=== PATIENT | female | born 1940 | race Caucasian/White ===

== ENCOUNTER 2017-07-08 09:14 | Outpatient (CLI) | payer MEDICARE, OTHER ==
[2017-07-08 10:00] LABS: BASOPHILS % 0.8 (0.0-1.5); EOSINOPHILS % 4.1 % (0.0-6.8); MEAN CORPUSCULAR VOLUME 95.2 fl (80.0-100.0); MONOCYTES % 4.4 % (0.0-11.0); NEUTROPHILS # 6.3 # k/uL (1.4-7.7)
[2017-07-08 10:46] LABS: eGFR (African) > 60; eGFR (Non-African) > 60
== END 2017-07-08 09:15 ==
LOC: LAB 09:14
PROVIDERS: ATTEND Family Medicine
DX: R53.1 Weakness (principal); R07.9 Chest pain, unspecified
CPT/HCPCS: 36415; 80053; 83036; 84443; 85025

== ENCOUNTER 2017-07-09 11:32 | Outpatient (CLI) | payer MEDICARE, OTHER | END 2017-07-09 11:33 | LOC: LAB 11:32 | PROVIDERS: ATTEND Family Medicine | DX: R73.9 Hyperglycemia, unspecified (principal) | CPT/HCPCS: 36415; 83036 ==

== ENCOUNTER 2017-07-12 15:33 | Inpatient (IN) | payer MEDICARE, OTHER ==
--- NOTE | 2017-07-12 15:43 | ED Physician Documentation ---
General Adult - HISTORIAN Historian: patient - HPI Stated Complaint: hyperglycemia, chest pain Chief Complaint: General Adult Onset: hours Timing: still present Severity: moderate Further Comments: yes (Pt is a 77 yo female dx'd with DMII recently and started on Metformin 1000 mg po bid at the beginning of this week. Pt found an elevated blood sugar of 400 at home today and called her doctor who told her to come to ER. Pt has also had chest pain at home together with increased dyspnea on exertion in the past few days. Pt has also had nausea. Nausea preceded her starting Metformin. Pt was supposed to have started Metformin 500 bid for a week and then increase to 1000 mg bid, but pt started in at 1000 mg po bid. Pt states that pain has been 6/10 in severity and is in her central and lower chest and radiated to her back. Pt's daughter also notes that pt has been having occasional difficulties remembering words, and inverting numbers on the telephone in the past few days.) - ROS CONST: weakness EYES/ENT: none CVS/RESP: chest pain, shortness of breath GI/: nausea MS/SKIN/LYMPH: none - PAST HX Past History: AMI, other (DMII (recent dx), CAD, HLD, depression.) Allergies/Adverse Reactions: Allergies Allergy/AdvReac Type Severity Reaction Status Date / Time No Known Drug Allergies Allergy Verified 07/12/17 16:49 Home Medications: Ambulatory Orders Medication Instructions Recorded Aspirin 81 mg PO DAILY u2 03/02/14 Centrum Silver Ultra Women Tab 1 each PO DAILY u2 03/02/14 Simvastatin 10 mg PO DAILY u2 03/02/14 - SOCIAL HX Smoking History: cigarettes (4 cigarettes/day) - FAMILY HX Family History: No - REVIEWED ASSESSMENTS Nursing Assessment Reviewed: Yes Vitals Reviewed: Yes Progress - Progress Progress: glucose = 405 Insulin R 8 units SC glucose = 365 after [address] Morgan for hyperglycemia, chest pain, elevated lipase. (Dr. Morgan to write insulin orders.) - EKG/XRAY/CT EKG: NSR (HR=85; normal axis; normal AK interval; normal EKG.) XRAY: chest (neg) General Adult Physical Exam - PHYSICAL EXAM GENERAL APPEARANCE: mild distress EENT: pharynx normal NECK: normal inspection, supple RESPIRATORY: no resp distress, chest non-tender, breath sounds normal CVS: reg rate & rhythm, heart sounds normal ABDOMEN: soft, no organomegaly, normal bowel sounds BACK: normal inspection, no CVA tenderness SKIN: warm/dry, normal color EXTREMITIES: non-tender, normal range of motion, no evidence of injury NEURO: oriented X3, motor nml, sensation nml Discharge Clincal Impression: chest pain, Hyperglycemia, elevated Lipase, Dyspnea on exertion Referrals: Johana Ratliff MD [Primary Care Provider] - Condition: Stable Disposition: 09 ADMITTED INPATIENT Decision to Admit: [id number] Decision Time: 17:07
[2017-07-12] MEDS ORDERED: ASPIRIN 81 MG CHEW TAB PO ONE (16:00)
[2017-07-12] MEDS ORDERED: INSULIN REGULAR, HUMAN 100 UNIT/ML 3ML VIAL SQ STA (16:04)
[2017-07-12] MEDS ORDERED: INSULIN REGULAR, HUMAN 100 UNIT/ML 3ML VIAL ONE (16:06)
[2017-07-12 16:10] LABS: BASOPHILS % 0.5 (0.0-1.5); EOSINOPHILS % 4.1 % (0.0-6.8); MEAN CORPUSCULAR HEMOGLOBIN 31.2 pg (28.0-34.0); MEAN CORPUSCULAR VOLUME 91.5 fl (80.0-100.0); NEUTROPHILS # 5.4 # k/uL (1.4-7.7)
[2017-07-12 16:19] LABS: eGFR (African) > 60; eGFR (Non-African) > 60
[2017-07-12] MEDS ORDERED: 0.9 % SODIUM CHLORIDE 1,000 ML IV SCH (17:30)
--- NOTE | 2017-07-12 18:52 | Diagnostic Imaging Report ---
PEDRO LUIS BLISS [facility] [id number] Pending Sale To [facility] [address] [place] [address]. [id number] Report Submission Date: Jul 12, 2017 4:39:55 PM CDT Patient Study Name: JACKIE BILLY Date: Jul 12, 2017 4:03:55 PM CDT Modality Type: DX Gender: F Description: CHEST : 42 Institution: [facility] Physician: PEDRO LUIS BLISS Examination: Portable chest History: Evaluate lungs. PCXR, DYSPNEA ON EXERTION, SOA FOR A WEEKS, WORSENING (Hx) Comparison exam: None provided. Findings: Single view of the chest demonstrates a normal cardiac and mediastinal silhouette. Lung mccollum without focal infiltrate. No blunting of the costophrenic margins. Left lower lung granuloma/calcification. Articular degenerative changes. Impression: No acute pulmonary process. Electronically signed on Jul 12, 2017 4:39:55 PM CDT by: Shane SAAVEDRA
[2017-07-12 19:31] VITALS: BMI 22.8
[2017-07-12] MEDS: DEXTROSE 5 %-0.45 % NACL 1,000 ML IV SCH (22:19)
--- NOTE | 2017-07-12 22:25 | History and Physical Report ---
History of Present Illnes - History of Present Illness Reason for Visit: Chest pain, elevated lipase, hyperglycemia History of Present Illness: This is a 77 year old female who presented to the ER with some chest pain/upper abdominal pain and an elevated blood sugar at just over 400. She has been recently diagnosed with diabetes by Dr. Ratliff, and started on Metformin. She was to start on 500 po BID x 1 week and then advance to 1000 BID, but she started at 1000 BID. She is now having very little chest or abdominal pain. She is admitted for serial troponins. - Past Medical History Cardiac: CAD, HTN Pulmonary: COPD Heme/Onc: Cancer (of breast) Musculoskeletal: Osteoarthritis Endocrine: Diabetes, Hypothyroidism - Past Surgical History Past Surgical History: (x2), Hysterectomy, Other (Breast Lumpectomy, Lumbar fusion) - Past Social History Smoke: <1 pack per day Alcohol: Rare Drugs: None Lives: Alone Domestic Violence: Negative - Health Maintenance Health Maintenance: Cholesterol Influenza Vaccine: Current for this Influenza Season Pneumonia Vaccine: Yes Resuscitation Status: Resusciation Status Resuscitation Status Full Code - Unable to Obtain History Unable to Obtain: No Review of Systems - Review of Systems Constitutional: negative: Fever, Chills Eyes: negative: pain, vision change ENT: negative: Ear Pain, Ear Discharge Respiratory: Shortness of Breath, SOB with Excertion. negative: Cough, Dry Cardiovascular: negative: Chest Pain Gastrointestinal: Abdominal Pain (mild epigastric). negative: Nausea Genitourinary: negative: Dysuria Musculoskeletal: negative: Neck Pain, Shoulder Pain Skin: negative: Rash, Lesions Neurological: Weakness, Change in Speech (some word finding difficulty, family has noted that she sometimes inverts numbers in phone numbers) - Medications/Allergies Allergies/Adverse Reactions: Allergies Allergy/AdvReac Type Severity Reaction Status Date / Time No Known Drug Allergies Allergy Verified 07/12/17 16:49 Current Inpatient Medications: Current Inpatient Medications Aspirin (Aspirin) 81 mg PO DAILY [facility] Escitalopram Oxalate (Lexapro) 20 mg PO DAILY [facility] Dextrose/Sodium Chloride (D51/2ns) 1,000 mls @ 100 mls/hr IV Q10H [facility] Last Admin: 07/12/17 22:19 Dose: 100 mls/hr Metformin HCl (Glucophage) 1,[address] [place] [id number] [facility] Miscellaneous (Chem Sticks) 1 each CHEMQID [facility] Last Admin: 07/12/17 22:19 Dose: 1 each Nystatin (Nystop) 1 appl TP BID [facility] Stop: 07/22/17 22:59 Simvastatin (Zocor) 10 mg PO DAILY [facility] Exam - Exam Vital Signs: Vital Signs (72 hours) 07/12/17 07/12/17 07/12/17 18:00 18:30 19:00 Temperature 97.8 F Pulse Rate 88 90 Pulse Rate [ 81 Pulse ox] Pulse Rate [ 81 Right] Respiratory 16 Rate Blood Pressure 123/75 [Right Arm] O2 Sat by Pulse 95 Oximetry 07/12/17 07/12/17 19:31 21:07 Temperature Pulse Rate 84 74 Pulse Rate [ Pulse ox] Pulse Rate [ Right] Respiratory Rate Blood Pressure [Right Arm] O2 Sat by Pulse Oximetry General: Alert, Oriented to Person, Oriented to Place, Oriented to Time, Cooperative HEENT: Atraumatic, PERRLA, EOMI Neck: No: Stridor, Rigidity Lungs: Wheezes, Prolonged Expiration, Decreased Air Movement Cardiovascular: Regular rate Murmur: No: Systolic Murmur Abdomen: Normal bowel sounds, Soft, Other (mild tenderness in epigastrium). No : Distended Genitourinary: No: Other Male Genitourinary: No: Other Female Genitourinary: No: Other Integumentary: Normal, [place], Warm Extremities: No clubbing, No cyanosis, No edema Neurological: Normal speech Psych/Mental Status: Mental status NL Assessment/Plan - Assessment/Plan (1) Elevated lipase Status: Acute Current Visit: Yes Assessment: NPO Recheck lipase in am (2) Dyspnea on exertion Status: Acute Current Visit: Yes Assessment: Serial troponins and EKGs. (3) Hyperglycemia Status: Acute Current Visit: Yes Assessment: Now euglycemic Plan: Started D5 1/2NS due to NPO status Continue metformin VTE Assessment - RISK FACTOR SCORE VTE RISK FACTOR SCORES: AGE OVER 60 YEARS, ACUTE RESPIRATORY FAILURE/SEVERE COPD - RISK VTE MODERATE RISK: SCORE OF 2 (RISK PROXIMAL DVT 2-4%) PROPHYAXIS NEEDED
[2017-07-12] MEDS ORDERED: NYSTATIN POWDER BOTTLE TP SCH (23:00)
[2017-07-13] MEDS ORDERED: SIMVASTATIN 20 MG TABLET ONE (02:56)
[2017-07-13] MEDS ORDERED: ASPIRIN EC 81 MG TABLET.DR ONE (02:56)
[2017-07-13 04:20] LABS: BASOPHILS % 0.6 (0.0-1.5); EOSINOPHILS % 5.4 % (0.0-6.8); MEAN CORPUSCULAR VOLUME 90.7 fl (80.0-100.0); MONOCYTES % 7.3 % (0.0-11.0); NEUTROPHILS # 4.8 # k/uL (1.4-7.7)
[2017-07-13 04:32] LABS: eGFR (African) > 60; eGFR (Non-African) > 60
[2017-07-13] MEDS ORDERED: ACETAMINOPHEN 325 MG TABLET PO PRN (04:46)
[2017-07-13] MEDS ORDERED: ONDANSETRON HCL/PF 4 MG/ 2ML VIAL IVP PRN (04:47)
[2017-07-13] MEDS: ACETAMINOPHEN 325 MG TABLET PO PRN ×2 (04:59→20:40)
[2017-07-13] MEDS: DEXTROSE 5 %-0.45 % NACL 1,000 ML IV SCH ×3 (09:12→19:42)
[2017-07-13] MEDS: ASPIRIN 81 MG CHEW TAB PO SCH (09:13)
[2017-07-13] MEDS: ESCITALOPRAM OXALATE 10 MG TABLET PO SCH (09:13)
[2017-07-13] MEDS: SIMVASTATIN 40 MG TABLET PO SCH (09:15)
--- NOTE | 2017-07-13 11:01 | Inpatient Progress Note ---
Subjective - Required Recertification Statement I anticipate X number of days because-include discharge plan: 1 - Review of Systems Events since last encounter: Janeth is still having epigastric pain. She remains NPO. Her EKG shows no evidence of ischemia, and her troponins are all negative x 3, however her lipase increased from 406 to 460 today. I have ordered a CT scan of her abdomen to evaluate her pancreas, and she remains NPO. She says that she is intermittently hungry, however she says "I think I'm more hungry in theory than in reality, and I doubt I could eat anything if I had the opportunity". General: Denies: Chills HEENT: Denies: Head Aches Pulmonary: Denies: Dyspnea, Cough Cardiovascular: Denies: Chest Pain Gastrointestinal: Other (continued epigastric pain) Genitourinary: Denies: Dysuria, Frequency Musculoskeletal: Denies: Neck Pain Neurological: Denies: Weakness, Incoordination, Change in Speech, Confusion Objective - Exam Vitals and I&O: Vital Signs Temp 97.4 F L 07/13/17 08:23 Pulse 83 07/13/17 08:23 Resp 16 07/13/17 08:23 BP 144/81 07/13/17 08:23 Pulse Ox 97 07/13/17 08:23 Intake & Output 07/12/17 07/12/17 07/13/17 11:59 23:59 11:59 Intake Total 350 800 Output Total 200 800 Balance 150 0 Weight 62.142 kg Intake: IV 350 800 Left Antecubital 350 800 Oral 0 Output: Urine 200 800 Other: Voiding Method Toilet Toilet General: Alert, Oriented to Person, Oriented to Place, Mild distress HEENT: Atraumatic, PERRLA, EOMI Neck: Supple, No JVD Lungs: Clear to auscultation, Normal air movement, Speaks full Sentences Cardiovascular: Regular rate Abdomen: Normal bowel sounds, Soft, No tenderness Extremities: No clubbing, No cyanosis, No edema Skin: Normal Neurological: Normal speech Psych/Mental Status: Mental status NL - Results Results: Laboratory Results WBC 8.50 K/ul (4.00-12.00) 07/13/17 04:10 RBC 4.41 M/ul (3.90-5.20) 07/13/17 04:10 Hgb 13.7 g/dL (12.0-16.0) 07/13/17 04:10 Hct 40.0 % (34.5-46.5) 07/13/17 04:10 MCV 90.7 fl (80.0-100.0) 07/13/17 04:10 MCH 31.0 pg (28.0-34.0) 07/13/17 04:10 MCHC 34.2 g/dL (30.0-36.0) 07/13/17 04:10 RDW 12.7 % (11.3-14.3) 07/13/17 04:10 Plt Count 196 K/mm3 (130-400) 07/13/17 04:10 Neut % (Auto) 56.4 % (39.0-79.0) 07/13/17 04:10 Lymph % (Auto) 28.2 % (16.0-50.0) 07/13/17 04:10 [place] % (Auto) 7.3 % (0.0-11.0) 07/13/17 04:10 Eos % (Auto) 5.4 % (0.0-6.8) 07/13/17 04:10 Baso % (Auto) 0.6 (0.0-1.5) 07/13/17 04:10 Neut # (Auto) 4.8 # k/uL (1.4-7.7) 07/13/17 04:10 Lymph # (Auto) 2.4 # k/uL (0.6-4.0) 07/13/17 04:10 [place] # (Auto) 0.6 # k/uL (0.0-0.9) 07/13/17 04:10 Eos # (Auto) 0.5 # k/uL (0.0-0.6) 07/13/17 04:10 Baso # (Auto) 0.0 # k/uL (0.0-0.5) 07/13/17 04:10 Reactive Lymphs % 2.1 % (0.0-5.0) 07/13/17 04:10 Reactive Lymphs # 0.2 # k/uL (0.0-0.8) 07/13/17 04:10 Sodium 138 mmol/L (136-145) 07/13/17 04:10 Potassium 4.0 mmol/L (3.5-5.1) 07/13/17 04:10 Chloride 104 mmol/L (98-107) 07/13/17 04:10 Carbon Dioxide 22 mmol/L (22-30) 07/13/17 04:10 BUN 11 mg/dL (7-17) 07/13/17 04:10 Creatinine 0.50 mg/dL (0.52-1.04) L 07/13/17 04:10 Estimated Creat Clear 110 07/13/17 04:10 Est GFR ( Amer) > 60 (60-) 07/13/17 04:10 Est GFR (Non-Af Amer) > 60 (60-) 07/13/17 04:10 Glucose 247 mg/dL (74-106) H 07/13/17 04:10 Calcium 8.8 mg/dL (8.4-10.2) 07/13/17 04:10 Total Bilirubin 1.2 mg/dL (0.2-1.3) 07/13/17 04:10 AST 16 U/L (15-46) 07/13/17 04:10 ALT 30 U/L (13-69) 07/13/17 04:10 Alkaline Phosphatase 105 U/L (38-126) 07/13/17 04:10 Creatine Kinase 58 U/L (30-135) 07/12/17 16:05 Troponin I < 0.03 ng/mL (0.03-0.06) L 07/13/17 04:10 NT-Pro-B Natriuret Pep 39.2 pg/mL (15.0-450.0) 07/12/17 16:05 Total Protein 6.6 g/dL (6.3-8.2) 07/13/17 04:10 Albumin 3.8 g/dL (3.5-5.0) 07/13/17 04:10 Lipase 460 U/L (23-300) H 07/13/17 04:10 Assessment/Plan - Assessment/Plan (1) Elevated lipase Status: Acute Current Visit: Yes Assessment: Increased today Plan: Will check a CT of the abdomen and pelvis Continue NPO (2) Dyspnea on exertion Status: Acute Current Visit: Yes Assessment: Chronic (3) Hyperglycemia Status: Acute Current Visit: Yes Assessment: Will start SSI as blood sugars are still running in the 300s.
--- NOTE | 2017-07-13 12:43 | Diagnostic Imaging Report ---
[facility] [address] [address] [employer] [address] [place] [address]. [id number] Report Submission Date: Jul 13, 2017 12:38:09 PM CDT Patient Study Name: JACKIE BILLY Date: Jul 13, 2017 11:35:52 AM CDT Modality Type: CT\SR Gender: F Description: CT ABD PELVIS W/ CON : 42 Institution: [facility] Physician: REAL SAWYER/MED SURG Examination: CT Abdomen/pelvis History: PANCREATITIS, PT STATES ABDOMINAL PAIN X 5 DAYS (Hx) Comparison exams: None available Technique: CT Abdomen/pelvis with IV protocol. Initial imaging only partially covered of the upper abdominal organs delayed imaging obtained. Findings: Exam sensitivity somewhat reduced due to imaging technique. Head of the pancreas is enlarged measuring greater than 3.1 cm. Diffuse low attenuation/ decreased enhancement centrally. Prominence of the central intra pancreatic duct. Alysha pancreatic inflammatory changes. Prominence of the gallbladder with enhancement of the gallbladder wall. Dilated common bile duct. Liver demonstrates diffuse low attenuation. Within the left hepatic lobe is a 1.5 cm low density area. Generalized hepatic patchy enhancement. Patchy enhancement of the spleen. Adrenal glands and kidneys without gross abnormality. Abdominal aorta demonstrates peripheral atherosclerotic disease. Aorta demonstrates a tortuous course through the abdomen. Periaortic inflammatory changes. Prominent loops of small bowel with air-fluid levels. Significant stool within the large bowel. No loculated /peripherally enhancing fluid collection within the abdomen. Osseous structures demonstrate degenerative changes. Curvature to the right. Generalized osteopenia. Lung bases demonstrate parenchymal infiltrate/scarring right greater than left. Impression: Significant pancreatic inflammatory changes. Low density area involving the head of the pancreas - mass versus large area of infectious/ necrosis. Left hepatic lobe lesion - findings concerning for metastases given the pancreatic findings. Gallbladder inflammatory changes with dilation of the common bile duct. Dilated small bowel with air-fluid levels - functional ileus versus early obstruction. Significant stool throughout the large bowel - constipation. Lung base infiltrates, right greater than left. Electronically signed on Jul 13, 2017 12:38:09 PM CDT by: Shane Mckee [facility] [address] [address] [employer] [address] [place] [address]. [id number] Report Submission Date: Jul 13, 2017 12:37:50 PM CDT Patient Study Name: JACKIE BILLY Date: Jul 13, 2017 11:43:22 AM CDT Modality Type: CT\SR Gender: F Description: CT ABD PELVIS W/ CON : 42 Institution: [facility] Physician: REAL SAWYER/MED SURG Examination: CT Abdomen/pelvis History: PANCREATITIS, PT STATES ABDOMINAL PAIN X 5 DAYS (Hx) Comparison exams: None available Technique: CT Abdomen/pelvis with IV protocol. Initial imaging only partially covered of the upper abdominal organs delayed imaging obtained. Findings: Exam sensitivity somewhat reduced due to imaging technique. Head of the pancreas is enlarged measuring greater than 3.1 cm. Diffuse low attenuation/ decreased enhancement centrally. Prominence of the central intra pancreatic duct. Alysha pancreatic inflammatory changes. Prominence of the gallbladder with enhancement of the gallbladder wall. Dilated common bile duct. Liver demonstrates diffuse low attenuation. Within the left hepatic lobe is a 1.5 cm low density area. Generalized hepatic patchy enhancement. Patchy enhancement of the spleen. Adrenal glands and kidneys without gross abnormality. Abdominal aorta demonstrates peripheral atherosclerotic disease. Aorta demonstrates a tortuous course through the abdomen. Periaortic inflammatory changes. Prominent loops of small bowel with air-fluid levels. Significant stool within the large bowel. No loculated /peripherally enhancing fluid collection within the abdomen. Osseous structures demonstrate degenerative changes. Curvature to the right. Generalized osteopenia. Lung bases demonstrate parenchymal infiltrate/scarring right greater than left. Impression: Significant pancreatic inflammatory changes. Low density area involving the head of the pancreas - mass versus large area of infectious/ necrosis. Left hepatic lobe lesion - findings concerning for metastases given the pancreatic findings. Gallbladder inflammatory changes with dilation of the common bile duct. Dilated small bowel with air-fluid levels - functional ileus versus early obstruction. Significant stool throughout the large bowel - constipation. Lung base infiltrates, right greater than left. Electronically signed on Jul 13, 2017 12:37:50 PM CDT by: Shane SAAVEDRA
[2017-07-13] MEDS: INSULIN LISPRO 100 UNIT/ML 3ML VIAL SQ SCH ×3 (12:52→20:46)
[2017-07-13] MEDS ORDERED: NYSTATIN POWDER BOTTLE TP ONE (19:21)
[2017-07-13] MEDS ORDERED: NYSTATIN POWDER BOTTLE TP SCH ×2 (20:00→21:00)
[2017-07-14] MEDS ORDERED: ASPIRIN EC 81 MG TABLET.DR ONE (01:10)
[2017-07-14] MEDS ORDERED: SIMVASTATIN 20 MG TABLET ONE (01:10)
[2017-07-14] MEDS: DEXTROSE 5 %-0.45 % NACL 1,000 ML IV SCH ×2 (05:09→23:56)
[2017-07-14] MEDS: ASPIRIN 81 MG CHEW TAB PO SCH (08:49)
[2017-07-14] MEDS: SIMVASTATIN 40 MG TABLET PO SCH (08:50)
[2017-07-14] MEDS: ESCITALOPRAM OXALATE 10 MG TABLET PO SCH (08:50)
[2017-07-14] MEDS: INSULIN LISPRO 100 UNIT/ML 3ML VIAL SQ SCH ×4 (08:51→20:00)
[2017-07-14] MEDS ORDERED: MORPHINE SULFATE 4 MG/ML PREFILLED SYR IVP PRN (13:34)
--- NOTE | 2017-07-14 13:49 | Inpatient Progress Note ---
Subjective - Required Recertification Statement I anticipate X number of days because-include discharge plan: 2 - Review of Systems Events since last encounter: I had a long discussion with Janeth and her daughter Orly today regarding the findings of her CT scan. It showed multiple findings including bibasilar infiltrates (that were not noted on CXR of the same day), as well as a question of a mass in the head of the pancreas and a possible left hepatic lesion. It also showed some inflammatory changes of the gall bladder. The most striking finding was diffuse inflammatory changes of the pancreas consistent with pancreatitis. Her white count has remained normal (8K) and her renal labs are stable. We discussed that one of the possible reasons for the findings on her CT may be pancreatic cancer, however this is not definit. Her lipase is trending back down and dropped 54 points today to 406. Her blood sugars are still elevated and she remains on D5 1/2 NS. I hope to stop this if I am able to advance her diet today. She continues to have only some mild epigastric discomfort and is declining any pain medications at this time. I discussed her case with Dr. Mckeon at today including her radiology findings and labs, who feels that the patient is stable, and doesn't feel like she needs to be transferred to , but that the workup for her findings on the CT can be done as an outpatient. She recommended that I call them tomorrow so that we can set up an appointment for this after she is discharged. General: Denies: Chills, Night Sweats, Fatigue HEENT: Denies: Head Aches Pulmonary: Denies: Dyspnea, Cough Cardiovascular: Denies: Chest Pain Gastrointestinal: Abdominal Pain (mid epigastric) Genitourinary: Denies: Dysuria, Frequency Musculoskeletal: Denies: Neck Pain Neurological: Weakness. Denies: Numbness, Incoordination Objective - Exam Vitals and I&O: Vital Signs Temp 97.0 F L 07/14/17 09:52 Pulse 67 07/14/17 12:13 Resp 20 07/14/17 09:52 BP 127/57 07/14/17 09:52 Pulse Ox 100 07/14/17 09:52 Intake & Output 07/13/17 07/14/17 07/14/17 23:59 11:59 23:59 Intake Total 1080 800 Output Total 1000 700 Balance 80 100 Intake: IV 1050 800 Left Antecubital 1050 800 Oral 30 0 Output: Urine 1000 700 Other: Voiding Method Toilet Toilet General: Alert, Oriented to Person, Oriented to Place, Oriented to Time, Mild distress (due to epigastric pain) HEENT: Atraumatic, PERRLA Neck: Supple, No JVD Lungs: Clear to auscultation, Decreased Air Movement Cardiovascular: Regular rate Abdomen: Normal bowel sounds, Soft, Other (Tenderness in the mid epigastrium) Extremities: No clubbing, No cyanosis, No edema Skin: Normal Neurological: Normal speech Psych/Mental Status: Mental status NL - Results Results: Laboratory Results WBC 8.50 K/ul (4.00-12.00) 07/13/17 04:10 RBC 4.41 M/ul (3.90-5.20) 07/13/17 04:10 Hgb 13.7 g/dL (12.0-16.0) 07/13/17 04:10 Hct 40.0 % (34.5-46.5) 07/13/17 04:10 MCV 90.7 fl (80.0-100.0) 07/13/17 04:10 MCH 31.0 pg (28.0-34.0) 07/13/17 04:10 MCHC 34.2 g/dL (30.0-36.0) 07/13/17 04:10 RDW 12.7 % (11.3-14.3) 07/13/17 04:10 Plt Count 196 K/mm3 (130-400) 07/13/17 04:10 Neut % (Auto) 56.4 % (39.0-79.0) 07/13/17 04:10 Lymph % (Auto) 28.2 % (16.0-50.0) 07/13/17 04:10 [place] % (Auto) 7.3 % (0.0-11.0) 07/13/17 04:10 Eos % (Auto) 5.4 % (0.0-6.8) 07/13/17 04:10 Baso % (Auto) 0.6 (0.0-1.5) 07/13/17 04:10 Neut # (Auto) 4.8 # k/uL (1.4-7.7) 07/13/17 04:10 Lymph # (Auto) 2.4 # k/uL (0.6-4.0) 07/13/17 04:10 [place] # (Auto) 0.6 # k/uL (0.0-0.9) 07/13/17 04:10 Eos # (Auto) 0.5 # k/uL (0.0-0.6) 07/13/17 04:10 Baso # (Auto) 0.0 # k/uL (0.0-0.5) 07/13/17 04:10 Reactive Lymphs % 2.1 % (0.0-5.0) 07/13/17 04:10 Reactive Lymphs # 0.2 # k/uL (0.0-0.8) 07/13/17 04:10 Sodium 138 mmol/L (136-145) 07/13/17 04:10 Potassium 4.0 mmol/L (3.5-5.1) 07/13/17 04:10 Chloride 104 mmol/L (98-107) 07/13/17 04:10 Carbon Dioxide 22 mmol/L (22-30) 07/13/17 04:10 BUN 11 mg/dL (7-17) 07/13/17 04:10 Creatinine 0.50 mg/dL (0.52-1.04) L 07/13/17 04:10 Estimated Creat Clear 110 07/13/17 04:10 Est GFR ( Amer) > 60 (60-) 07/13/17 04:10 Est GFR (Non-Af Amer) > 60 (60-) 07/13/17 04:10 Glucose 247 mg/dL (74-106) H 07/13/17 04:10 Calcium 8.8 mg/dL (8.4-10.2) 07/13/17 04:10 Total Bilirubin 1.2 mg/dL (0.2-1.3) 07/13/17 04:10 AST 16 U/L (15-46) 07/13/17 04:10 ALT 30 U/L (13-69) 07/13/17 04:10 Alkaline Phosphatase 105 U/L (38-126) 07/13/17 04:10 Creatine Kinase 58 U/L (30-135) 07/12/17 16:05 Troponin I < 0.03 ng/mL (0.03-0.06) L 07/13/17 04:10 NT-Pro-B Natriuret Pep 39.2 pg/mL (15.0-450.0) 07/12/17 16:05 Total Protein 6.6 g/dL (6.3-8.2) 07/13/17 04:10 Albumin 3.8 g/dL (3.5-5.0) 07/13/17 04:10 Lipase 404 U/L (23-300) H 07/14/17 07:00 Assessment/Plan - Assessment/Plan (1) Pancreatitis Status: Acute Current Visit: Yes Assessment: Discussed with Dr. Mckeon at today Advance diet Follow labs (2) Elevated lipase Status: Acute Current Visit: Yes Assessment: Due to pancreatitis (3) Pancreatic mass Status: Acute Current Visit: Yes Assessment: Will need workup after discharge (4) Dyspnea on exertion Status: Acute Current Visit: Yes (5) Hyperglycemia Status: Acute Current Visit: Yes Assessment: Due to new onset diabetes Plan: Advance diet Continue SSI
--- NOTE | 2017-07-14 14:14 | Diagnostic Imaging Report ---
[facility] [address] [facility] [id number] Report Submission Date: Jul 14, 2017 2:01:15 PM CDT Patient Study Name: JACKIE BILLY Date: Jul 14, 2017 1:38:43 PM CDT Modality Type: DX Gender: F Description: CHEST : 42 Institution: [facility] Physician: REAL SAWYER/MED SURG Examination: PA and lateral chest. History: Evaluate lung mccollum. PT STATES SOB, CHEST PAIN. SMOKER. HX OF HEART SURGERY bilateral infiltrates noted on CT abdomen (Hx) Comparison exam: 12 July 2017 Findings: PA lateral chest demonstrate a normal cardiac and mediastinal silhouette. Tortuous aorta with vascular calcifications involving aortic arch. Right lower lung linear infiltrate. No blunting of the costophrenic margins. Articular degenerative changes. Impression: Right lung base linear infiltrate. No effusion. Electronically signed on Jul 14, 2017 2:01:15 PM CDT by: Shane SAAVEDRA
[2017-07-14 14:27] LABS: MEAN CORPUSCULAR HEMOGLOBIN 31.8 pg (28.0-34.0); MEAN CORPUSCULAR VOLUME 92.5 fl (80.0-100.0)
[2017-07-14 14:33] LABS: eGFR (African) > 60; eGFR (Non-African) > 60
[2017-07-15] MEDS: DEXTROSE 5 %-0.45 % NACL 1,000 ML IV SCH ×4 (01:06→20:22)
[2017-07-15] MEDS ORDERED: SIMVASTATIN 20 MG TABLET ONE (01:31)
[2017-07-15] MEDS ORDERED: ASPIRIN EC 81 MG TABLET.DR ONE (01:31)
[2017-07-15] MEDS: ACETAMINOPHEN 325 MG TABLET PO PRN ×3 (01:49→09:16)
[2017-07-15] MEDS: INSULIN LISPRO 100 UNIT/ML 3ML VIAL SQ SCH ×4 (09:13→20:25)
[2017-07-15] MEDS: ASPIRIN 81 MG CHEW TAB PO SCH (09:17)
[2017-07-15] MEDS: SIMVASTATIN 40 MG TABLET PO SCH (09:17)
[2017-07-15] MEDS: ESCITALOPRAM OXALATE 10 MG TABLET PO SCH (09:17)
--- NOTE | 2017-07-15 09:20 | Inpatient Progress Note ---
Subjective - Required Recertification Statement I anticipate X number of days because-include discharge plan: 2 - Review of Systems Events since last encounter: Janeth is eating well. She has no pain this morning. Her left knee is painful and she has decreased ROM. Labs have remained normal wit the exception of her lipase still being elevated. General: Denies: Chills HEENT: Denies: Head Aches Pulmonary: Denies: Dyspnea Cardiovascular: Denies: Chest Pain Gastrointestinal: Abdominal Pain (resolved) Genitourinary: Denies: Dysuria Musculoskeletal: Denies: Neck Pain Neurological: Denies: Weakness, Confusion Objective - Exam Vitals and I&O: Vital Signs Temp 97.1 F L 07/15/17 05:59 Pulse 76 07/15/17 08:53 Resp 16 07/15/17 06:00 BP 124/80 07/15/17 05:59 Pulse Ox 94 07/15/17 05:59 Intake & Output 07/14/17 07/14/17 07/15/17 11:59 23:59 11:59 Intake Total 800 940 300 Output Total 700 Balance 100 940 300 Intake: IV 800 700 Left Antecubital 800 700 Oral 0 240 300 Output: Urine 700 Other: Voiding Method Toilet Toilet Toilet # Voids 1 1 General: Alert, Oriented to Person, Oriented to Place, Oriented to Time, Cooperative, No acute distress HEENT: Atraumatic, PERRLA Neck: Supple, No JVD Lungs: Clear to auscultation Cardiovascular: Regular rate, Normal S1 Abdomen: Normal bowel sounds, Soft, No tenderness Extremities: No clubbing, No cyanosis, Other (left knee will not fully extend or flex. No warmth is noted) Skin: Normal, [place], Warm, Dry Neurological: Normal speech Psych/Mental Status: Mental status NL - Results Results: Laboratory Results WBC 9.80 K/ul (4.00-12.00) 07/14/17 14:06 RBC 4.27 M/ul (3.90-5.20) 07/14/17 14:06 Hgb 13.6 g/dL (12.0-16.0) 07/14/17 14:06 Hct 39.5 % (34.5-46.5) 07/14/17 14:06 MCV 92.5 fl (80.0-100.0) 07/14/17 14:06 MCH 31.8 pg (28.0-34.0) 07/14/17 14:06 MCHC 34.4 g/dL (30.0-36.0) 07/14/17 14:06 RDW 12.8 % (11.3-14.3) 07/14/17 14:06 Plt Count 199 K/mm3 (130-400) 07/14/17 14:06 Neut % (Auto) 56.4 % (39.0-79.0) 07/13/17 04:10 Lymph % (Auto) 28.2 % (16.0-50.0) 07/13/17 04:10 [place] % (Auto) 7.3 % (0.0-11.0) 07/13/17 04:10 Eos % (Auto) 5.4 % (0.0-6.8) 07/13/17 04:10 Baso % (Auto) 0.6 (0.0-1.5) 07/13/17 04:10 Neut # (Auto) 4.8 # k/uL (1.4-7.7) 07/13/17 04:10 Lymph # (Auto) 2.4 # k/uL (0.6-4.0) 07/13/17 04:10 [place]rell # (Auto) 0.6 # k/uL (0.0-0.9) 07/13/17 04:10 Eos # (Auto) 0.5 # k/uL (0.0-0.6) 07/13/17 04:10 Baso # (Auto) 0.0 # k/uL (0.0-0.5) 07/13/17 04:10 Reactive Lymphs % 2.1 % (0.0-5.0) 07/13/17 04:10 Reactive Lymphs # 0.2 # k/uL (0.0-0.8) 07/13/17 04:10 Sodium 138 mmol/L (136-145) 07/14/17 14:06 Potassium 3.5 mmol/L (3.5-5.1) 07/14/17 14:06 Chloride 104 mmol/L (98-107) 07/14/17 14:06 Carbon Dioxide 22 mmol/L (22-30) 07/14/17 14:06 BUN 6 mg/dL (7-17) L 07/14/17 14:06 Creatinine 0.50 mg/dL (0.52-1.04) L 07/14/17 14:06 Estimated Creat Clear 110 07/14/17 14:06 Est GFR ( Amer) > 60 (60-) 07/14/17 14:06 Est GFR (Non-Af Amer) > 60 (60-) 07/14/17 14:06 Glucose 184 mg/dL (74-106) H 07/14/17 14:06 Calcium 9.1 mg/dL (8.4-10.2) 07/14/17 14:06 Total Bilirubin 1.1 mg/dL (0.2-1.3) 07/14/17 14:06 AST 19 U/L (15-46) 07/14/17 14:06 ALT 33 U/L (13-69) 07/14/17 14:06 Alkaline Phosphatase 99 U/L (38-126) 07/14/17 14:06 Creatine Kinase 58 U/L (30-135) 07/12/17 16:05 Troponin I < 0.03 ng/mL (0.03-0.06) L 07/13/17 04:10 NT-Pro-B Natriuret Pep 39.2 pg/mL (15.0-450.0) 07/12/17 16:05 Total Protein 6.6 g/dL (6.3-8.2) 07/14/17 14:06 Albumin 3.8 g/dL (3.5-5.0) 07/14/17 14:06 Lipase 509 U/L (23-300) H 07/15/17 06:20 Assessment/Plan - Assessment/Plan (1) Pancreatitis Status: Acute Current Visit: Yes Assessment: Continue to advance diet If patient continues to be clinically improved, will d/c tomorrow and get immediate MRI abdomen to further evaluate her pancreas. I remain concerned that she may have pancreatic cancer rather than simple pancreatitis. (2) Elevated lipase Status: Acute Current Visit: Yes Assessment: Check lipase in am (3) Pancreatic mass Status: Acute Current Visit: Yes (4) Dyspnea on exertion Status: Acute Current Visit: Yes (5) Hyperglycemia Status: Acute Current Visit: Yes Assessment: Restart metformin
[2017-07-15] MEDS: IBUPROFEN 400 MG TABLET PO PRN (13:48)
[2017-07-15] MEDS: HYDROcodone /APAP 5/325 1 EACH TABLET PO PRN ×3 (14:34→21:13)
--- NOTE | 2017-07-15 15:18 | Diagnostic Imaging Report ---
BRE ALONSO [facility] [address] [facility] [address] [place] [id number] Report Submission Date: Jul 15, 2017 10:08:17 AM CDT Patient Study Name: JACKIE BILLY Date: Jul 15, 2017 9:32:04 AM CDT Modality Type: DX Gender: F Description: LOWER EXTREMITY : 42 Institution: [facility] Physician: BRE ALONSO Examination: Plain film left knee History: PT C/O LEFT KNEE PAIN AND DECREASED RANGE OF MOTION X 1 DAY. NO KNOWN TRAUMA. (Hx) Findings: 3 views of the left knee demonstrates osteopenia. Tibial spine, medial /lateral, and patellar spurring. Medial joint space narrowing. No fracture line. Vascular calcifications. Impression: Osteopenia and advanced degenerative changes. No fracture Electronically signed on Jul 15, 2017 10:08:17 AM CDT by: Shane SAAVEDRA
[2017-07-15] MEDS ORDERED: COLCHICINE 0.6 MG TABLET PO ONE ×3 (18:18→21:06)
[2017-07-15] MEDS: COLCHICINE 0.6 MG TABLET PO SCH ×3 (18:21→21:11)
[2017-07-15] MEDS: NYSTATIN POWDER BOTTLE TP SCH (20:28)
[2017-07-15] MEDS ORDERED: ONDANSETRON HCL 4 MG TAB.RAPDIS ONE ×2 (20:56→21:06)
[2017-07-15] MEDS ORDERED: ONDANSETRON HCL 4 MG TAB.RAPDIS PO PRN (20:59)
[2017-07-16] MEDS ORDERED: COLCHICINE 0.6 MG TABLET PO ONE (01:39)
[2017-07-16] MEDS ORDERED: SIMVASTATIN 20 MG TABLET ONE (01:39)
[2017-07-16] MEDS: HYDROcodone /APAP 5/325 1 EACH TABLET PO PRN ×2 (06:09→11:34)
[2017-07-16] MEDS: INSULIN LISPRO 100 UNIT/ML 3ML VIAL SQ SCH ×2 (07:15→11:29)
[2017-07-16] MEDS ORDERED: SIMVASTATIN 20 MG TABLET PO SCH (09:00)
[2017-07-16] MEDS: ASPIRIN 81 MG CHEW TAB PO SCH (09:07)
[2017-07-16] MEDS: NYSTATIN POWDER BOTTLE TP SCH (09:07)
[2017-07-16] MEDS: ESCITALOPRAM OXALATE 10 MG TABLET PO SCH (09:07)
[2017-07-16] MEDS: COLCHICINE 0.6 MG TABLET PO SCH (09:07)
[2017-07-16 11:25] LABS: eGFR (African) > 60; eGFR (Non-African) > 60
[2017-07-16 11:30] LABS: MEAN CORPUSCULAR HEMOGLOBIN 31.9 pg (28.0-34.0); MEAN CORPUSCULAR VOLUME 95.3 fl (80.0-100.0)
[2017-07-16] MEDS: IBUPROFEN 400 MG TABLET PO PRN (13:59)
[2017-07-16 14:11] VITALS: BP 131/73
--- NOTE | 2017-07-16 15:18 | Discharge Summary ---
DATE OF ADMISSION: July 12, 2017 DATE OF DISCHARGE: July 16, 2017 DIAGNOSES ON THIS HOSPITALIZATION: 1. New onset of diabetes. 2. Pancreatitis. 3. Elevated lipase. 4. Gouty attack of left knee. 5. Questionable pancreatic mass. 6. Dyspnea on exertion. SUMMARIZATION OF ADMISSION HISTORY AND PHYSICAL: This is a 77-year-old female who presented to the emergency room with chest and epigastric pain. She was admitted for evaluation of her elevated lipase. During the course of her hospitalization, she did develop a gouty flair of her left knee also. Blood sugars actually came under a little bit better control while she was in the hospital. She did have an abdominal CT because of her elevated lipase which showed diffuse inflammatory changes of her pancreas and it also showed a questionable mass in the head of her pancreas and a questionable hepatic lesion. An MRI was recommended, so we will be doing that as an outpatient. We advanced her diet slowly and she initially had nausea but then she was able to tolerate a full diet. She was discharged to home today with the following medications. CONDITION ON DISCHARGE: She is discharged to home with home health in markedly improved condition. MEDICATIONS ON DISCHARGE: 1. Metformin 500 mg p.o. b.i.d. 2. [place] 5/325 mg 1 p.o. every 4 hours p.r.n. pain. A prescription is given to her for that. 3. Lexapro 20 mg p.o. daily. 4. Ibuprofen 600 mg every 6 hours as needed for pain. 5. Nystatin powder applied to her perineal area b.i.d. for rash. [facility] 6. Simvastatin 10 mg at bedtime. DISCHARGE INSTRUCTIONS: 1. Follow up in [address] Ratliff. 2. In the meantime, we will do an MRI of her abdomen with contrast at the [facility]. We will hopefully have those results back when she sees Dr. Ratliff back for follow up. KERI
== END 2017-07-16 15:45 | disposition home health service (06) | DRG 637 ==
LOC: ED 15:33 → SOUTH 17:26
PROVIDERS: ADMIT Family Medicine; ATTEND Family Medicine
DX: E11.65 Type 2 diabetes mellitus with hyperglycemia (principal); K85.90 Acute pancreatitis without necrosis or infection, unspecified; R74.8 Abnormal levels of other serum enzymes; M10.9 Gout, unspecified; K86.9 Disease of pancreas, unspecified; R06.09 Other forms of dyspnea
CPT/HCPCS: 36415; 71045; 71046; 73562; 74177; 80053; 82550; 83690; 83880; 84484; 84550; 85025; 85027; 93005; A9270; J1815; J2405; J7030; 96365; 96372; 99222; 99232; 99238; 99284; Q9967; S1016; S5010

== ENCOUNTER 2017-07-24 17:33 | Emergency (ER) | payer MEDICARE, OTHER ==
[2017-07-24] MEDS ORDERED: ASPIRIN 81 MG CHEW TAB PO ONE (17:36)
--- NOTE | 2017-07-24 17:36 | ED Physician Documentation ---
Chest Pain - HISTORIAN Historian: patient - HPI Stated Complaint: chest pain Chief Complaint: Chest Pain Onset: hours (5) Timing: sudden onset Duration: constant Last known Well Date: 07/23/17 Last Known Well Time: 11:00 Last known Well Code/Unknown Code: Unknown Context: rest Severity: moderate Quality: pressure, tightness, sharp, stabbing. denies: like prior [place] Chest Pain Radiation: no radiation Chest Pain Signs/Symptoms: nausea, vomiting. denies: diaphoresis, dizziness, dyspnea Worsened By: nothing Relieved By: nothing - ROS CONST: recent illness (pancreatitis ) MS/LYMPH: none GI/: abdominal pain (Pancreatitis ) EYES/ENT: none SKIN/ENDO: none NEURO/PSYCH: none - PAST HX AK risk factors: hypertension, hyperlipidemia, other (depression, history of pancreatitis ) DVT/PE Risk Factors: none TAD/AAA risk factors: none Neuro deficit: none GI disease: none Lung disease: none Surgeries/Procedures: other Immunizations: UTD Allergies/Adverse Reactions: Allergies Allergy/AdvReac Type Severity Reaction Status Date / Time No Known Drug Allergies Allergy Verified 07/24/17 17:58 Home Medications: Ambulatory Orders Medication Instructions Recorded Aspirin 81 mg PO DAILY u2 03/02/14 Centrum Silver Ultra Women Tab 1 each PO DAILY u2 03/02/14 Simvastatin 10 mg PO DAILY u2 03/02/14 HYDROcodone /APAP 5/325 [Free[place] 1 each PO Q6 PRN 07/24/17 5/325] - SOCIAL HX Smoking History: non-smoker Alcohol Use: none Drug Use: none - FAMILY HX Family HX: none - VITAL SIGNS Vital Signs: Vital Signs Temp Pulse Resp BP Pulse Ox 131/73 07/16/17 14:10 - REVIEWED ASSESSMENTS Nursing Assessment Reviewed: Yes Vitals Reviewed: Yes Progress - Progress Progress: 18[facility] with Dr Morgan who will accept the patient. Pt and daughter notified of current findings and transfer acceptance. DG ED Results Lab/Radiology - Radiology Radiology Impressions: Chest, PA and lateral HISTORY Chest pain. FINDINGS Mild atelectasis is noted in the right mid lung. Left lung is clear. Surgical clips superimpose the left breast. Heart size and pulmonary vascularity are normal. There is calcification in the thoracic aorta. Since 07/14/2017, no change has occurred. IMPRESSION Right mid lung atelectasis, unchanged. Electronically signed on Jul 24, 2017 6:11:08 PM CDT by: Mitch Amin Chest Pain Physical Exam - EXAM General Appearance: alert, mild distress EENT: eye inspection normal, no signs of dehydration Neck: nml inspection Respiratory: no resp. distress, nml breath sounds, resp.distress, other (pain with palpation on right side of chest and mid chest ) CVS: reg. rate & rhythm, no murmur, pulses equal Abdomen: soft, normal bowel sounds, tenderness (generalized ) Skin: warm/dry, normal color Extremities: non-tender, normal range of motion, no evidence of injury, no edema Neuro: oriented X3, CN's nml as tested, motor nml, sensation nml, mood/affect nml, cognition normal Discharge Clincal Impression: Liver enzyme elevation Chest pain Qualifiers: Chest pain type: unspecified Qualified Code(s): R07.9 - Chest pain, unspecified Referrals: Johana Ratliff MD [Primary Care Provider] - 2 Days Comments: Admission by Dr Morgan to [facility] Disposition: 09 ADMITTED INPATIENT Decision to Admit: NO Date of Decison to Admit: 07/24/17 Decision Time: 18:55
[2017-07-24 17:47] LABS: BASOPHILS % 0.5 (0.0-1.5); EOSINOPHILS % 4.6 % (0.0-6.8); MEAN CORPUSCULAR HEMOGLOBIN 31.4 pg (28.0-34.0); MEAN CORPUSCULAR VOLUME 96.5 fl (80.0-100.0); MONOCYTES % 6.6 % (0.0-11.0)
[2017-07-24] MEDS ORDERED: fentaNYL CITRATE/PF 100 MCG/ 2ML AMP IVP ONE ×2 (17:48→19:02)
[2017-07-24] MEDS ORDERED: ONDANSETRON HCL/PF 4 MG/ 2ML VIAL ONE (17:49)
[2017-07-24 17:58] VITALS: BP 151/76
[2017-07-24 18:01] LABS: eGFR (African) > 60; eGFR (Non-African) > 60
[2017-07-24] MEDS ORDERED: ONDANSETRON HCL/PF 4 MG/ 2ML VIAL IVP ONE (18:03)
--- NOTE | 2017-07-24 18:22 | Diagnostic Imaging Report ---
DANIELLE MCNAMARA [facility] [address] [facility] [address] [place], [place]. [address] Report Submission Date: Jul 24, 2017 6:11:08 PM CDT Patient Study Name: JACKIE BILLY Date: Jul 24, 2017 5:50:03 PM CDT Modality Type: DX Gender: F Description: CHEST : 42 Institution: [facility] Physician: DANIELLE MCNAMARA Chest, PA and lateral HISTORY Chest pain. FINDINGS Mild atelectasis is noted in the right mid lung. Left lung is clear. Surgical clips superimpose the left breast. Heart size and pulmonary vascularity are normal. There is calcification in the thoracic aorta. Since 07/14/2017, no change has occurred. IMPRESSION Right mid lung atelectasis, unchanged. Electronically signed on Jul 24, 2017 6:11:08 PM CDT by: Mitch SAAVEDRA
== END 2017-07-24 20:05 | disposition short-term general hospital (02) ==
LOC: ED 17:33
DX: R07.9 Chest pain, unspecified (principal)
CPT/HCPCS: 71046; 80053; 82550; 82553; 84484; 85025; 85379; 93005; J2405; J3010; 96374; 96375; 96376; 99284; S1016